=== PATIENT | male | born 1985 | race African-American/Black ===

== ENCOUNTER 2018-11-07 08:48 | Emergency (ER) | payer OTHER ==
[~2018-11-07] VITALS: Ht 172.7 cm; Wt 104.3 kg
[~2018-11-07 08:48] MED LIST: NAPROSYN500 MG PO; ZPAK PO
[2018-11-07 08:58] VITALS: BP 120/71
[2018-11-07] MEDS ORDERED: AMOXICILLIN500 M1 PO (09:46)
== END 2018-11-07 09:52 | disposition home or self-care (01) ==
LOC: ER 08:48
DX: H72.92 Unspecified perforation of tympanic membrane, left ear (principal); F17.210 Nicotine dependence, cigarettes, uncomplicated

== ENCOUNTER 2018-11-15 13:26 | Emergency (ER) | payer BC ==
[~2018-11-15] VITALS: Ht 172.7 cm; Wt 99.8 kg
[~2018-11-15 13:26] MED LIST changes: +AMOXICILLIN500 M1 PO
[2018-11-15 13:27] VITALS: BP 147/84
[2018-11-15] MEDS ORDERED: CORTISPORIN OTI10 M2 OTIC (14:41)
== END 2018-11-15 16:56 | disposition home or self-care (01) ==
LOC: ER 13:26
DX: S00.412A Abrasion of left ear, initial encounter (principal); H61.22 Impacted cerumen, left ear; F17.210 Nicotine dependence, cigarettes, uncomplicated; X58.XXXA Exposure to other specified factors, initial encounter; Y93.89 Activity, other specified; Y92.89 Other specified places as the place of occurrence of the external cause; Y99.8 Other external cause status

== ENCOUNTER 2019-01-06 15:20 | Emergency (ER) | payer BC ==
[~2019-01-06] VITALS: Ht 175.3 cm; Wt 88.5 kg
[~2019-01-06 15:20] MED LIST changes: +CORTISPORIN OTI10 M2 OTIC
[2019-01-06 16:16] LABS: CALCIUM 9.1 mg/dL (8.5-10.1); CREATININE 1.3 mg/dL (0.7-1.3); POTASSIUM 3.4 mmol/L (3.5-5.1)
[2019-01-06 16:22] LABS: ALBUMIN 4.2 g/dL (3.4-5.0); TOTAL BILIRUBIN 0.4 mg/dL (<0.1-1.0); TOTAL PROTEIN 7.9 g/dL (6.4-8.2)
[2019-01-06 16:59] LABS: URINE BILIRUBIN NEGATIVE (Negative); URINE BLOOD NEGATIVE (Negative); URINE CLARITY CLEAR; URINE COLOR YELLOW; URINE GLUCOSE-RANDOM* NEGATIVE (Negative); URINE KETONES NEGATIVE (Negative); URINE LEUKOCYTES-REFLEX NEGATIVE (Negative); URINE NITRITE-REFLEX NEGATIVE (Negative); URINE PROTEIN (DIPSTICK) NEGATIVE (Negative); URINE SPECIFIC GRAVITY >= 1.030 (1.005-1.035); URINE UROBILINOGEN 0.2 E.U./dl (0.2-1.0)
[2019-01-06 18:13] LABS: ABSOLUTE NEUTROPHILS 4.3 thou/uL (1.4-8.2); BASOPHILS 0.6 % (0.0-2.0); EOSINOPHILS 2.9 % (0.0-3.0); HEMOGLOBIN 16.4 gm/dL (14.0-18.0); LYMPHOCYTES 34.6 % (24.0-44.0); MCH 30.3 pg (26.0-34.0); MCHC 33.4 g/dL (28.0-37.0); MCV 90.8 fL (80.0-100.0); MONOCYTES 8.2 % (1.0-8.0); PLATELET COUNT 210 thou/uL (150-400); POLYS 53.7 % (36.0-66.0); RDW 13.4 % (10.5-14.5)
[2019-01-06] MEDS ORDERED: ONDANSETRON HCL4 M2 PO (19:12)
[2019-01-06 19:22] LABS: LARGE PLATELETS RARE
[2019-01-06 19:52] VITALS: BP 112/65
== END 2019-01-06 19:30 | disposition home or self-care (01) ==
LOC: ER 15:20
PROVIDERS: Emergency Medicine; Physician Assistant
DX: R11.2 Nausea with vomiting, unspecified (principal); R10.30 Lower abdominal pain, unspecified; F17.210 Nicotine dependence, cigarettes, uncomplicated

== ENCOUNTER 2019-01-21 13:34 | Emergency (ER) | payer BC ==
[~2019-01-21] VITALS: Ht 175.3 cm; Wt 104.3 kg
[~2019-01-21 13:34] MED LIST changes: +ONDANSETRON HCL4 M2 PO
[2019-01-21 14:47] VITALS: BP 127/76
== END 2019-01-21 14:52 | disposition home or self-care (01) ==
LOC: ER 13:34
DX: B34.9 Viral infection, unspecified (principal); F17.210 Nicotine dependence, cigarettes, uncomplicated